=== PATIENT | female | born 2000 | race Caucasian/White ===

== ENCOUNTER 2022-03-28 19:02 | Emergency (ER) | payer BC ==
[2022-03-28 19:58] LABS: Urine Blood 3+ (Negative); Urine Glucose Negative (Negative); Urine Protein 1+ (Negative); Urine Specific Gravity >=1.030 (1.005-1.030); Urine pH 5.5 (5.0-7.0)
[2022-03-28 20:19] LABS: Absolute Lymphocytes (CBC) 2.1 K/uL (0.7-4.9); Lymphocytes % 23.1 % (15.3-44.8); MCV 81.2 fL (80-100); MPV 8.4 fL (7.6-11.3); RBC Red Blood Cell Count 4.93 M/uL (3.86-4.86)
[2022-03-28 20:19] LABS: Urine Specific Gravity/Preg >1.030 (1.005-1.030)
[2022-03-28] MEDS ORDERED: ONDANSETRON 4 MG/2 ML VIAL ONE (20:30)
[2022-03-28] MEDS ORDERED: NA CHLORIDE 0.9% 1,000 ML ONE (20:31)
[2022-03-28 20:41] LABS: Urine Bacteria None Seen /HPF (<20); Urine Mucus 1+ /HPF (None Seen); Urine RBC >50 /HPF (None Seen)
[2022-03-28] MEDS ORDERED: PROMETHAZINE INJ 25 MG/ML AMP ONE (20:52)
--- NOTE | 2022-03-28 21:11 | RAD REPORT ---
EXAM DESCRIPTION: US - 1St Trimest Single 1St Fetus - 03/28/2022 8:59 pm CLINICAL HISTORY: with vaginal bleeding COMPARISON: None. FINDINGS: The uterus measures 11 x 7 by centimeters. A normal appearing gestational sac is present within the endometrium. Within this is a pole with a crown-rump length 5.2 centimeters. Cardiac activity 183 beats per minute beats per minute Small subchorionic bleed Right and left ovary appear normal. The right and left adnexa are unremarkable No significant free fluid is seen. IMPRESSION: Single live intrauterine with an estimated gestational age 11 weeks 5 days ED D 10/12/2022 Small subchorionic bleed
--- NOTE | 2022-03-28 21:38 | EDPHYS ---
Physician Documentation [facility] Name: Gertrude Giron Age: 21 yrs Sex: Female : 2000 Arrival Date: 03/28/2022 Time: 19:04 Bed 16 Private MD: ED Physician Neena Herrera HPI: 03/28 19:53 This 21 yrs old Female presents to ER via Ambulatory with complaints of Vaginal sd2 Bleeding, + Preg <12wks. 19:53 21 yo F at 11 weeks gestation presents with CC of abdominal cramping x weeks and sd2 vaginal bleeding when using the restroom that just started today. Reports prior US at 6 weeks 6 days confirming IUP at help center and has been on vitamins. Also complains of significant nausea and vomiting during the past few weeks and is not on medication for this. Has her first appointment scheduled with her OBGYN in 3 days. . Historical: - Allergies: 19:22 PENICILLINS; pf1 - Immunization history:: Client reports having NOT received the Covid vaccine. Last tetanus immunization: < 10 years ago Flu vaccine is not up to date. - Social history:: Smoking status: Reported history of juuling and/or vaping. Patient/guardian denies using tobacco, Patient/guardian denies using alcohol, street drugs. ROS: 19:53 Constitutional: Negative for fever, chills, and weight loss, Eyes: Negative for injury, sd2 pain, redness, and discharge, Cardiovascular: Negative for chest pain, palpitations, and edema, Respiratory: Negative for shortness of breath, cough, wheezing. 19:53 MS/Extremity: Negative for injury and deformity, Skin: Negative for injury, rash, and discoloration. 19:53 Abdomen/GI: Positive for nausea and vomiting, abdominal cramps, Negative for diarrhea. 19:53 : Positive for vaginal bleeding, Negative for urinary symptoms. Exam: 19:53 Constitutional: This is a well developed, well nourished patient who is awake, alert, sd2 and in no acute distress. Head/Face: Normocephalic, atraumatic. Eyes: EOMI, normal conjunctiva bilaterally Chest/axilla: Normal chest wall appearance and motion. Nontender with no deformity. Cardiovascular: Regular rate and rhythm with a normal S1 and S2. No gallops, murmurs, or rubs. 2+ distal pulses. Respiratory: Lungs have equal breath sounds bilaterally, clear to auscultation and percussion. No rales, rhonchi or wheezes noted. No increased work of breathing, no retractions or nasal flaring. Abdomen/GI: Soft, non-tender, with normal bowel sounds. No guarding or rebound. No evidence of tenderness throughout. Skin: Warm, dry with normal turgor. Normal color with no rashes, no lesions, and no evidence of cellulitis. MS/ Extremity: Pulses equal, no cyanosis. Neurovascular intact. Full, normal range of motion. Ambulatory without difficulty. Psych: Awake, alert, with orientation to person, place and time. Behavior, mood, and affect are within normal limits. Vital Signs: 19:18 BP 115 / 76; Pulse 89; Resp 18; Temp 98.3; Pulse Ox 100% ; Weight 63.05 kg; Height 5 pf1 ft. 2 in. (157.48 cm); Pain 5/10; 21:00 BP 123 / 65; Pulse 81; Resp 16; Pulse Ox 100% on R/A; jb4 19:18 Body Mass Index 25.42 (63.05 kg, 157.48 cm) pf1 MDM: 19:48 Patient medically screened. sd2 19:53 Differential diagnosis: STD, ectopic , among others. Data reviewed: vital sd2 signs, nurses notes. 21:33 Data reviewed: lab test result(s), radiologic studies. I considered the following sd2 discharge prescriptions or medication management in the emergency department Medications were administered in the Emergency Department. See MAR. Historians other than the Patient: Parent: provides further HPI. Counseling: I had a detailed discussion with the patient and/or guardian regarding: the historical points, exam findings, and any diagnostic results supporting the discharge/admit diagnosis, lab results, radiology results, the need for outpatient follow up, to return to the emergency department if symptoms worsen or persist or if there are any questions or concerns that arise at home. ED course: Pt has had passage of a couple of large clots while in ER with resolved bleeding after each episode. She has very stable VS with no signs of significant anemia on workup. US shows subchorionic bleed which is likely source of bleeding. hCG appropriate for dates and fetus with normal heart tones at this time. Advised continuing with follow up plan with OBGYN this upcoming week and continuing to monitor bleeding at this time. Also advised Unisom and B6 for nausea but will also give Rx for phenergan at home. Verbalizes understanding of discharge plan and strict return precautions at this time. . 03/28 19:30 Order name: CBC with Diff; Complete Time: 20:28 sd2 03/28 19:30 Order name: Abo/rh Typing; Complete Time: 20:48 sd2 03/28 19:30 Order name: HCG-Quantitative; Complete Time: 21:10 sd2 03/28 19:30 Order name: Urine Microscopic Only; Complete Time: 20:48 sd2 03/28 19:58 Order name: Urine Dipstick-Ancillary; Complete Time: 20:28 EDMS 03/28 20:02 Order name: Urine --Ancillary (enter results); Complete Time: 20:28 ds4 03/28 19:30 Order name: Urine Dipstick-Ancillary (obtain specimen); Complete Time: 19:58 sd2 03/28 19:30 Order name: Urine Test (obtain specimen); Complete Time: 20:02 sd2 03/28 19:30 Order name: 1st Trimest Single 1st Fetus; Complete Time: 21:22 sd2 Administered Medications: 20:34 Drug: NS 0.9% 1000 ml Route: IV; Rate: 1 bolus; Site: left antecubital; jb4 20:48 Not Given (Physician Discretion): Zofran (Ondansetron) 4 mg IVP once; over 2 minutes sd2 20:51 Drug: Phenergan (promethazine) 12.5 mg {Note: administered in bolus per providers jb4 instructions..} Route: IVP; Site: left antecubital; Disposition Summary: 03/28/22 21:37 Discharge Ordered Location: Home sd2 Problem: new sd2 Symptoms: have improved sd2 Condition: Stable sd2 Diagnosis - First trimester vaginal bleeding sd2 - Subchorionic hemorrhage sd2 Followup: sd2 - With: Private Physician - When: 2 - 3 days - Reason: Recheck today's complaints, Continuance of care, Re-evaluation by your physician Discharge Instructions: - Discharge Summary Sheet sd2 - Vaginal Bleeding During , First Trimester sd2 - Subchorionic Hematoma sd2 Forms: - Medication Reconciliation Form sd2 - Work release form eb - Thank You Letter sd2 - Antibiotic Education sd2 - Prescription Opioid Use sd2 Prescriptions: - promethazine 25 mg Oral Tablet - take 1 tablet by ORAL route every 6 hours As needed; 15 tablet; Refills: 0, sd2 Product Selection Permitted Signatures: Dispatcher [employer] Florian Maier RN RN jb4 Neena Herrera MD MD sd2 Montserrat harris RN RN pf1
--- NOTE | 2022-03-28 21:38 | ER ---
Nurse's Notes [facility] Name: Gertrude Giron Age: 21 yrs Sex: Female : 2000 Arrival Date: 03/28/2022 Time: 19:04 Bed 16 Private MD: Diagnosis: First trimester vaginal bleeding;Subchorionic hemorrhage Presentation: 03/28 19:18 Chief complaint: Patient states: Patient C/O nausea and vomiting x 2 weeks, lower pf1 abdominal pain of 5 cramping,onset 1 week with vaginal bleeding with clots,onset today. Patient stated is currently 11 weeks . IUP confirmed by [facility] on February 24, 2022. . Coronavirus screen: Vaccine status: Patient reports being unvaccinated. Client denies travel out of the [place] in the last 14 days. At this time, the client does not indicate any symptoms associated with coronavirus-19. Ebola Screen: Patient negative for fever greater than or equal to 101.5 degrees Fahrenheit, and additional compatible Ebola Virus Disease symptoms. Initial Sepsis Screen: Does the patient meet any 2 criteria? No. Patient's initial sepsis screen is negative. Does the patient have a suspected source of infection? No. Patient's initial sepsis screen is negative. Risk Assessment: Do you want to hurt yourself or someone else? Patient reports no desire to harm self or others. 19:18 Method Of Arrival: Ambulatory pf1 19:18 Acuity: ZOEY 3 pf1 Historical: - Allergies: 19:22 PENICILLINS; pf1 - Immunization history:: Client reports having NOT received the Covid vaccine. Last tetanus immunization: < 10 years ago Flu vaccine is not up to date. - Social history:: Smoking status: Reported history of juuling and/or vaping. Patient/guardian denies using tobacco, Patient/guardian denies using alcohol, street drugs. Screenin:59 [facility] ED Fall Risk Assessment (Adult) History of falling in the last 3 months, jb4 including since admission No falls in past 3 months (0 pts) Confusion or Disorientation No (0 pts) Score/Fall Risk Level 0 - 2 = Low Risk Oriented to surroundings, Maintained a safe environment. Abuse screen: Denies threats or abuse. Nutritional screening: No deficits noted. Tuberculosis screening: No symptoms or risk factors identified. Assessment: 20:00 General: Appears in no apparent distress. comfortable, Behavior is calm, cooperative, jb4 appropriate for age. Pain: Complains of pain in abdomen Pain does not radiate. Pain currently is 5 out of 10 on a pain scale. Neuro: Level of Consciousness is awake, alert, obeys commands, Oriented to person, place, time, situation. Cardiovascular: Patient's skin is warm and dry. Respiratory: Airway is patent Respiratory effort is even, unlabored, Respiratory pattern is regular, symmetrical. GI: No signs and/or symptoms were reported involving the gastrointestinal system. : Reports vaginal bleeding that is with clots, heavy flow. EENT: No signs and/or symptoms were reported regarding the EENT system. Derm: Skin is intact, Skin is pink, warm \T\ dry. Musculoskeletal: Circulation, motion, and sensation intact. Range of motion: intact in all extremities. 21:00 Reassessment: Patient appears in no apparent distress at this time. Patient and/or jb4 family updated on plan of care and expected duration. Pain level reassessed. Patient is alert, oriented x 3, equal unlabored respirations, skin warm/dry/pink. 21:59 Reassessment: Patient appears in no apparent distress at this time. Patient and/or jb4 family updated on plan of care and expected duration. Pain level reassessed. Patient is alert, oriented x 3, equal unlabored respirations, skin warm/dry/pink. Vital Signs: 19:18 BP 115 / 76; Pulse 89; Resp 18; Temp 98.3; Pulse Ox 100% ; Weight 63.05 kg; Height 5 pf1 ft. 2 in. (157.48 cm); Pain 5/10; 21:00 BP 123 / 65; Pulse 81; Resp 16; Pulse Ox 100% on R/A; jb4 19:18 Body Mass Index 25.42 (63.05 kg, 157.48 cm) pf1 ED Course: 19:04 Patient arrived in ED. am2 19:22 Triage completed. pf1 19:30 Neena Herrera MD is Attending Physician. sd2 19:58 Urine Microscopic Only Sent. pf1 20:20 Florian Torres, RN is Primary Nurse. jb4 21:00 1st Trimest Single 1st Fetus In Process Unspecified. EDMS 21:59 No provider procedures requiring assistance completed. IV discontinued, intact, jb4 bleeding controlled, No redness/swelling at site. Pressure dressing applied. 21:59 Patient has correct armband on for positive identification. Bed in low position. Call jb4 light in reach. Side rails up X 1. Administered Medications: 20:34 Drug: NS 0.9% 1000 ml Route: IV; Rate: 1 bolus; Site: left antecubital; jb4 20:48 Not Given (Physician Discretion): Zofran (Ondansetron) 4 mg IVP once; over 2 minutes sd2 20:51 Drug: Phenergan (promethazine) 12.5 mg {Note: administered in bolus per providers jb4 instructions..} Route: IVP; Site: left antecubital; Medication: 21:59 VIS not applicable for this client. jb4 Outcome: 21:37 Discharge ordered by . sd2 21:59 Discharged to home ambulatory. jb4 21:59 Condition: stable 21:59 Discharge instructions given to patient, Instructed on discharge instructions, follow up and referral plans. medication usage, Demonstrated understanding of instructions, follow-up care, medications, Prescriptions given X 1. 22:02 Patient left the ED. jb4 Signatures: Dispatcher [employer] EDMS Florian Torres RN RN jb4 Magaly Menchaca am2 Neena Herrera MD MD sd2 Montserrat harris RN RN pf1 Corrections: (The following items were deleted from the chart) 19:33 19:18 Chief complaint: Patient states: Patient C/O lower abdominal pain of 5 pf1 cramping,onset 1 week with vaginal bleeding with clots,onset today. Patient stated is currently 11 weeks . IUP confirmed by [facility] on February 24, 2022. . pf1
[2022-03-28 22:09] VITALS: TEMP 98.3; O2SAT 100
[2022-03-28 22:10] VITALS: BP 123/65
== END 2022-03-28 22:02 | disposition home or self-care (01) ==
LOC: ER 19:02
DX: O20.9 Hemorrhage in early pregnancy, unspecified (principal); Z3A.11 11 weeks gestation of pregnancy; Z88.0 Allergy status to penicillin
CPT/HCPCS: 85025; 36415; 86900; 81025; 86901; 84702; 76801; 96374; 99284; J2550; J7030; 81003; 81015; J2405

== ENCOUNTER 2022-04-01 00:12 | Emergency (ER) | payer BC ==
--- OUTSIDE RECORDS SUMMARY | 2022-04-01 00:14 | XMS REPORT | Continuity of Care Document ---
:2000 Author Organization [facility] t Address [address] [place] [address] Care Team Providers Name Role Phone Pcp, Patient Does Not Have A Primary Care Physician [id number] JOE MARTÍNEZ Attending Clinician Unavailable Joe Martínez MD Attending Clinician Payers Payer Name Policy Type Policy Number Effective Date Expiration Date [id number] 2022 00:00:00 OUT OF STATE Problems This patient has no known problems. Allergies, Adverse Reactions, Alerts Allergy Allergy Status Severity Reaction(s) Onset Inactive Treating Comm ents Source Name Type Date Date Clinician NO KNOWN Drug Active Univers ALLERGIE Class ity of S [facility] Social History Social Habit Start Date Stop Date Quantity Comments Source ASSERTION 2022-01-21 [facility] 00:00:00 [facility] Exposure to 2022-03-21 2022-03-31 Not sure [facility] SARS-CoV-2 00:00:00 13:48:00 [facility] (event) [place] Tobacco use and 2022-03-31 2022-03-31 Smokeless tobacco Un iversity of exposure 00:00:00 00:00:00 non-user [facility] Alcohol intake 2022-03-31 2022-03-31 Ex-drinker [facility] 00:00:00 00:00:00 (finding) [facility] Sex Assigned At [birth year] Universit y of 00:00:00 00:00:00 [facility] Smoking Status Start Date Stop Date Source Never smoked tobacco [facility] Medications Ordered Filled Start Stop Current Ordering Indication Dosage Frequency Signature Comments Components Source Medication Medication Date Date Medication? Clinician (SIG) Name Name promethazin Yes [id number] Take by Univers e HCl 2-07 mouth. ity of (PHENERGAN 14:55: [place] ORAL) [facility] promethazin Yes [id number] Take by Univers e HCl 2-07 mouth. ity of (PHENERGAN 14:55: [place] ORAL) [facility] ondansetron Yes [id number] 4mg Take 1 Univers 4 mg 2-07 tablet by ity of disintegrat 00:00: mouth [place] ing tablet 00 every 8 Medica l (eight) Branch hours as needed for Nausea and Vomiting (N/V) or N/V unresponsi ve to Promethazi ne. Vital Signs Vital Name Observation Time Observation Value Comments Source Systolic blood 2022-03-31 20:47:00 106 [facility] Diastolic blood 2022-03-31 20:47:00 69 [facility]Hg[facility] 2022-03-31 20:47:00 98 /min [facility] Body temperature 2022-03-31 20:47:00 36.67 [place] [facility] Respiratory rate 2022-03-31 20:47:00 16 /min [facility] Body height 2022-03-31 20:47:[address] [facility] Body weight 2022-03-31 20:47:[address] [facility] BMI 2022-03-31 20:47:00 25.74 kg/m2 [facility] Oxygen saturation in 2022-03-31 20:47:00 97 /min [facility] blood by [facility] Pulse oximetry [place] Procedures Procedure Date / Time Performed Performing Clinician Alysa CAMARGO OB TRANSVAGINAL 2022-03-31 21:39:00 Adum, Joe Cunha [facility] POCT TEST 2022-03-31 00:00:00 Joe Martínezi ty [facility] Encounters Start End Encounter Admission Attending Care Care Encounter Source Date/Time Date/Time Type Type Clinicians Facility Department ID 2022-04-28 2022-04-28 [id number] Univers 11:15:00 11:15:00 JOE jose a [facility] 2022-04-07 2022-04-07 Outpatient R [facility] [id number] Univers 07:30:00 07:30:00 ity [facility] 2022-03-31 2022-03-31 Outpatient R TANYA [facility] [id number] Univers 14:30:00 15:50:57 [facility] 2022-03-31 2022-03-31 [facility] [id number] Univers 14:30:00 15:50:57 Joe EGAN [id number] ity of Visit [facility] [id number] [employer] [id number] [address] 2022-03-31 2022-03-31 Letter Tanya [facility] [id number] Univers 00:00:00 00:00:00 (Out) Joe EGAN [id number] i ty of [facility] [id number] [employer] [id number] [address] Results Test Description Test Time Test Comments Results Result Comments Source POCT TEST 2022-03-31 21:00:00 Test Item Value Reference Range Interpretation Comme nts POCT PREG (test code = 1605) Positive On board controls acceptable with C Line (test code = 3574) Yes POCT PREG LOT # (test code = 3575) POCT PREG TEST DATE (test code = 3576) [facility]
[2022-04-01] MEDS ORDERED: HYDROMORPHONE HCL 1 MG/ML INJ ONE (00:45)
[2022-04-01] MEDS ORDERED: NA CHLORIDE 0.9% 1,000 ML ONE (00:46)
[2022-04-01] MEDS ORDERED: METRONIDAZOLE 500mg IVPB 0 MG/0 ML BAG IV ONE (00:46)
[2022-04-01] MEDS ORDERED: METHYLERGONOVINE 0.2MG/ML AMP IM ONE (01:25)
[2022-04-01 01:35] LABS: Absolute Lymphocytes (CBC) 0.8 K/uL (0.7-4.9); Hematocrit 34.5 % (36.0-45.0); Lymphocytes % 5.6 % (15.3-44.8); MPV 8.5 fL (7.6-11.3); RBC Red Blood Cell Count 4.32 M/uL (3.86-4.86)
[2022-04-01 01:59] LABS: Potassium 3.4 mmol/L (3.5-5.1)
[2022-04-01] MEDS ORDERED: ONDANSETRON 4 MG/2 ML VIAL ONE (02:00)
--- NOTE | 2022-04-01 02:17 | ER ---
Nurse's Notes [facility] Name: Gertrude Giron Age: 21 yrs Sex: Female : 2000 Arrival Date: 04/01/2022 Time: 00:14 Bed 19 Private MD: Diagnosis: Complete or unspecified spontaneous without complication Presentation: 04/01 00:26 Chief complaint: Patient states: C/o low abdominal pain and vaginal bleeding, Pt states ll3 "I believe I had a miscarriage", states pain is 3/10. Coronavirus screen: Vaccine status: Patient reports being unvaccinated. At this time, the client does not indicate any symptoms associated with coronavirus-19. Ebola Screen: No symptoms or risks identified at this time. Initial Sepsis Screen: Does the patient meet any 2 criteria? No. Patient's initial sepsis screen is negative. Does the patient have a suspected source of infection? No. Patient's initial sepsis screen is negative. Risk Assessment: Do you want to hurt yourself or someone else? Patient reports no desire to harm self or others. Onset of symptoms was March 28, 2022. 00:26 Method Of Arrival: Ambulatory ll3 00:26 Acuity: ZOEY 3 ll3 Triage Assessment: 00:28 General: Appears uncomfortable, Behavior is calm, cooperative, crying. Pain: Complains ll3 of pain in right lower quadrant and left lower quadrant Pain currently is 3 out of 10 on a pain scale. Quality of pain is described as crampy. : Reports vaginal bleeding that is with clots, moderate flow, since Wednesday Brought in large blood clot/tissue, states "I think I had a miscarriage". Derm: Skin is pink, warm \\T\\ dry. [employer] INSURANCE: 00:28 LMP 01/16/2022 ll3 00:30 1, Full Term 0, Premature 0, 0, Living 0 jaime Historical: - Allergies: 00:28 PENICILLINS; ll3 - Home Meds: 00:28 None [Active]; ll3 - PMHx: 00:28 None; ll3 - PSHx: 00:28 Cholecystectomy; ll3 - Immunization history:: Client reports having NOT received the Covid vaccine. - Social history:: Smoking status: Patient denies any tobacco usage or history of. Screenin:43 [facility] ED Fall Risk Assessment (Adult) History of falling in the last 3 months, kd3 including since admission No falls in past 3 months (0 pts) Confusion or Disorientation No (0 pts) Intoxicated or Sedated No (0 pts) Impaired Gait No (0 pts) Mobility Assist Device Used No (0 pt) Altered Elimination No (0 pt) Score/Fall Risk Level 0 - 2 = Low Risk Oriented to surroundings, Maintained a safe environment. Abuse screen: Denies threats or abuse. Denies injuries from another. Nutritional screening: No deficits noted. Tuberculosis screening: No symptoms or risk factors identified. Assessment: 00:36 General: pt reports being about 12 weeks and 3 days . kd3 00:37 Obstetrical Assessment: General assessment: awake and alert, anxious, Patient reports kd3 abdominal cramping. 00:43 General: Appears Behavior is anxious, crying. Neuro: Level of Consciousness is awake, kd3 alert, obeys commands, Oriented to person, place, time, situation. Cardiovascular: Patient's skin is warm and dry. Respiratory: Airway is patent Trachea midline Respiratory effort is even, unlabored, Respiratory pattern is regular, symmetrical. 01:54 General: Pt family would like tissue returned to them in order to have a kd3 ceremony. This RN spoke with company laborerBeau. patient care technician suggested the family call when the pathologist arrived in the morning in order to have further instruction regarding receiving the specimen back. This RN gave the lab phone number to the patient's parents and passed the message to call the lab at 0800 when the pathologist is expected to arrive. . 02:00 GI: Reports nausea. kd3 Vital Signs: 00:26 BP 126 / 79; Pulse 107; Resp 16; Temp 98.8(O); Pulse Ox 98% on R/A; Weight 59.42 kg ll3 (R); Height 5 ft. 2 in. (157.48 cm) (R); Pain 3/10; 01:52 BP 125 / 68; Pulse 76; Resp 19; Pulse Ox 100% on R/A; kd3 00:26 Body Mass Index 23.96 (59.42 kg, 157.48 cm) ll3 ED Course: 00:14 Patient arrived in ED. ja2 00:22 Jacobo Alonzo MD is Attending Physician. jaime 00:28 Triage completed. ll3 00:28 Arm band placed on Patient placed in an exam room, on a stretcher, on pulse oximetry. ll3 00:43 Daniela Perry, RN is Primary Nurse. kd3 00:50 walked out specimen to outside lab handed specimen to Beau. Patient and family mw2 members would like to have the specimen returned to them in order for them to have proper bereavement. Informed Beau of the families wishes he stated " have the family call at 8am to speak to the Pathologist.". 01:08 US Transvaginal Ob In Process Unspecified. EDMS 01:18 Quantitative Hcg Sent. kd3 01:18 CBC with Diff Sent. kd3 01:18 Basic Metabolic Panel Sent. kd3 01:18 Abo/rh Typing Sent. kd3 01:22 Inserted saline lock: 22 gauge in left hand, using aseptic technique. ll3 01:30 Quantitative Hcg Sent. kd3 01:30 CBC with Diff Sent. kd3 01:30 Basic Metabolic Panel Sent. kd3 01:30 Abo/rh Typing Sent. kd3 02:17 Harish Castillo MD is Referral Physician. jaime 03:20 pelvic exam. IV discontinued, intact, bleeding controlled, No redness/swelling at site. kd3 Pressure dressing applied. 03:22 Patient has correct armband on for positive identification. Placed in gown. Bed in low kd3 position. Administered Medications: 01:30 Drug: NS 0.9% 1000 ml Route: IV; Rate: 1 bolus; Site: left hand; kd3 01:30 Drug: METHERgine 0.2 mg Route: IM; Site: right deltoid; kd3 03:19 Follow up: Response: No adverse reaction kd3 02:00 Drug: Zofran (Ondansetron) 4 mg Route: IVP; Site: left hand; kd3 03:19 Follow up: Response: No adverse reaction; Nausea is decreased kd3 03:07 Drug: Rho D Immune Globulin 300 mcg Route: IM; Site: left deltoid; kd3 03:19 Follow up: Response: No adverse reaction kd3 Medication: 03:22 VIS not applicable for this client. kd3 Outcome: 02:17 Discharge ordered by . jaime 03:20 Patient left the ED. kd3 03:21 Discharged to home ambulatory. kd3 03:21 Condition: stable 03:21 Discharge instructions given to patient, family, Instructed on discharge instructions, follow up and referral plans. Demonstrated understanding of instructions, follow-up care. Signatures: Dispatcher [employer] Jacobo Lama MD MD cha Gatti, MyKena 2 Kelin Benavidez Lynsea, RN RN ll3 Daniela Perry RN RN kd3
--- NOTE | 2022-04-01 02:17 | EDPHYS ---
Physician Documentation [facility] Name: Gertrude Giron Age: 21 yrs Sex: Female : 2000 Arrival Date: 04/01/2022 Time: 00:14 Bed 19 Private MD: ED Physician Jacobo Alonzo HPI: 04/01 00:30 This 21 yrs old Female presents to ER via Ambulatory with complaints of jaime Vaginal Bleeding, + Preg <12wks, Abdominal Cramping. 00:30 The patient presents to the emergency department with vaginal bleeding, that is jaime moderate, that is heavy. The estimated gestational age is 13 weeks. course: care: private OB physician, Leakage of Fluid: none appreciated, Ultrasound: Risk/complications: no obvious risks or complications are appreciated. Previous pregnancies: the patient has never been . Associated signs and symptoms: The patient has no apparent associated signs or symptoms. The patient has not experienced similar symptoms in the past. 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 - Social history:: Smoking status: Patient denies any tobacco usage or history of. ROS: 00:31 Constitutional: Negative for fever, chills, and weight loss, Eyes: Negative for injury, jaime pain, redness, and discharge, ENT: Negative for injury, pain, and discharge, Neck: Negative for injury, pain, and swelling, Cardiovascular: Negative for chest pain, palpitations, and edema, Respiratory: Negative for shortness of breath, cough, wheezing, and pleuritic chest pain, Back: Negative for injury and pain, MS/Extremity: Negative for injury and deformity, Skin: Negative for injury, rash, and discoloration, Neuro: Negative for headache, weakness, numbness, tingling, and seizure. 00:31 Abdomen/GI: Positive for abdominal pain, abdominal cramps. 00:31 : Positive for vaginal bleeding. Exam: 00:31 Constitutional: This is a well developed, well nourished patient who is awake, alert, jaime and in no acute distress. Head/Face: Normocephalic, atraumatic. Eyes: Pupils equal round and reactive to light, extra-ocular motions intact. Lids and lashes normal. Conjunctiva and sclera are non-icteric and not injected. Cornea within normal limits. Periorbital areas with no swelling, redness, or edema. ENT: Nares patent. No nasal discharge, no septal abnormalities noted. Tympanic membranes are normal and external auditory canals are clear. Oropharynx with no redness, swelling, or masses, exudates, or evidence of obstruction, uvula midline. Mucous membranes moist. Neck: Trachea midline, no thyromegaly or masses palpated, and no cervical lymphadenopathy. Supple, full range of motion without nuchal rigidity, or vertebral point tenderness. No Meningismus. Chest/axilla: Normal chest wall appearance and motion. Nontender with no deformity. No lesions are appreciated. Cardiovascular: Regular rate and rhythm with a normal S1 and S2. No gallops, murmurs, or rubs. Normal PMI, no JVD. No pulse deficits. Respiratory: Lungs have equal breath sounds bilaterally, clear to auscultation and percussion. No rales, rhonchi or wheezes noted. No increased work of breathing, no retractions or nasal flaring. Back: No spinal tenderness. No costovertebral tenderness. Full range of motion. Skin: Warm, dry with normal turgor. Normal color with no rashes, no lesions, and no evidence of cellulitis. MS/ Extremity: Pulses equal, no cyanosis. Neurovascular intact. Full, normal range of motion. Neuro: Awake and alert, GCS 15, oriented to person, place, time, and situation. Cranial nerves II-XII grossly intact. Motor strength 5/5 in all extremities. Sensory grossly intact. Cerebellar exam normal. Normal gait. Psych: Awake, alert, with orientation to person, place and time. Behavior, mood, and affect are within normal limits. 00:31 Abdomen/GI: Inspection: abdomen appears normal, Bowel sounds: normal, Palpation: soft, Liver: no appreciated palpable abnormalities, Hernia: not appreciated. Vital Signs: 00:26 BP 126 / 79; Pulse 107; Resp 16; Temp 98.8(O); Pulse Ox 98% on R/A; Weight 59.42 kg ll3 (R); Height 5 ft. 2 in. (157.48 cm) (R); Pain 3/10; 01:52 BP 125 / 68; Pulse 76; Resp 19; Pulse Ox 100% on R/A; kd3 00:26 Body Mass Index 23.96 (59.42 kg, 157.48 cm) ll3 MDM: 00:22 Patient medically screened. [facility] 00:33 Differential diagnosis: complete Ab, retained Ab. Data reviewed: vital signs, nurses [facility] notes, lab test result(s), radiologic studies, ultrasound. Consideration of Admission/Observation Patient was admitted/placed on observation. Escalation of care including admission/observation considered. Care significantly affected by the following chronic conditions: none. 04/01 00:24 Order name: Abo/rh Typing [facility] 04/01 00:24 Order name: Basic Metabolic Panel; Complete Time: 02:15 [facility] 04/01 00:24 Order name: CBC with Diff; Complete Time: 01:49 [facility] 04/01 00:24 Order name: Quantitative Hcg; Complete Time: 02:15 [facility] 04/01 02:21 Order name: Antibody Screen [facility] 04/01 02:21 Order name: Rh Typing [facility] 04/01 02:21 Order name: Fetalscreen [facility] 04/01 02:21 Order name: Cord Rh type [facility] 04/01 02:21 Order name: Rhogam [facility] 04/01 00:24 Order name: US Transvaginal Ob [facility] 04/01 00:24 Order name: IV Saline Lock; Complete Time: 01:30 [facility] 04/01 00:24 Order name: Labs collected and sent; Complete Time: 01:18 [facility] 04/01 00:24 Order name: NPO; Complete Time: 01:18 [facility] 04/01 00:24 Order name: Urine Dipstick-Ancillary (obtain specimen); Complete Time: 01:52 [facility] 04/01 00:24 Order name: Misc. Order: poc to lab; Complete Time: 00:47 [facility] 04/01 00:24 Order name: Pelvic Exam Setup; Complete Time: 01:18 [facility] 04/01 02:17 Order name: PO challenge: juice; Complete Time: 03:14 [facility] Administered Medications: 01:30 Drug: NS 0.9% 1000 ml Route: IV; Rate: 1 bolus; Site: left hand; kd3 01:30 Drug: METHERgine 0.2 mg Route: IM; Site: right deltoid; kd3 03:19 Follow up: Response: No adverse reaction kd3 02:00 Drug: Zofran (Ondansetron) 4 mg Route: IVP; Site: left hand; kd3 03:19 Follow up: Response: No adverse reaction; Nausea is decreased kd3 03:07 Drug: Rho D Immune Globulin 300 mcg Route: IM; Site: left deltoid; kd3 03:19 Follow up: Response: No adverse reaction kd3 Disposition Summary: 04/01/22 02:17 Discharge Ordered Location: Home jaime Problem: new jaime Symptoms: have improved jaime Condition: Stable jaime Diagnosis - Complete or unspecified spontaneous without complication jaime Followup: jaime - With: Private Physician - When: 2 - 3 days - Reason: Recheck today's complaints, Continuance of care, Re-evaluation by your physician Followup: jaime - With: - When: 2 - 3 days - Reason: Recheck today's complaints, Re-evaluation by your physician Discharge Instructions: - Miscarriage jaime - Miscarriage, [id number] jaime - Discharge Summary Sheet sb4 Forms: - Work release form jaime - Medication Reconciliation Form [facility] - Thank You Letter [facility] - Antibiotic Education [facility] - Prescription Opioid Use [facility] Prescriptions: - Methergine 0.2 mg Oral tablet - take 1 tablet by ORAL route every 6 hours for 2 days; 5 tablet; Refills: 0, sb4 Product Selection Permitted - Zofran 4 mg Oral Tablet - take 1 tablet by ORAL route every 12 hours As needed; 20 tablet; Refills: 0, [facility] Product Selection Permitted Signatures: Dispatcher [employer] Jacobo Lama MD MD cha Loubet, Lynsea RN RN ll3 Daniela Perry RN RN kd3 Corrections: (The following items were deleted from the chart) 02: 02:16 RHOGAM+[id number].BRZ ordered. EDMS EDMS 02: 02:18 Rh Typing ordered. EDMS EDMS 02: 02:18 Antibody Screen ordered. EDMS EDMS 02: 02:18 Fetalscreen ordered. EDMS EDMS 02: 02:18 Cord Rh type ordered. EDMS EDMS
[2022-04-01 03:30] VITALS: TEMP 98.8
[2022-04-01 03:36] VITALS: BP 125/68; O2SAT 100
--- NOTE | 2022-04-01 10:42 | RAD REPORT ---
EXAM DESCRIPTION: US - Transvaginal OB - 04/01/2022 1:01 am CLINICAL HISTORY: ABD CRAMPING, TECHNIQUE: Real-time transabdominal and transvaginal obstetrical ultrasound of the maternal pelvis a nd a first trimester with image documentation. Transvaginal imaging was used for better e valuation of the fetus and adnexa. COMPARISON: US 1st Trimester dated 03/28/2022 FINDINGS: Gestation: Previously demonstrated intrauterine gestational sac is no longer present. Heterogeneous thickening of the endometrium at the lower uterine segment and the endocervix. No dem onstrable vascularity on color Doppler interrogation. Uterus/cervix: The uterus is anteverted and measures 8.7 x 5.5 x 5.7 cm. No myometrial mass. Ovaries: Neither ovary is visualized. No mass. Free fluid: No free fluid. IMPRESSION: Findings compatible with interval spontaneous . Thickened endometrium and endo cervix which may represent hemorrhagic products. No definitive flow on color Doppler interrogation. However, the absence of blood flow does not exclude the diagnosis of retained products of concepti on. Careful follow-up including correlation with beta-hCG levels is recommended. Electronically signed by: Nico Yousif MD 04/01/2022 1:26 AM JAVA DEVELOPER WITH SECURITY CLEARANCE Due to temporary technical issues with the PACS/Fluency reporting system, reports are being signed by the in house radiologists without review as a courtesy to insure prompt reporting. The interpreting radiologist is fully responsible for the content of the report.
== END 2022-04-01 03:20 | disposition home or self-care (01) ==
LOC: ER 00:12
DX: O03.9 Complete or unspecified spontaneous abortion without complication (principal); Z88.0 Allergy status to penicillin
CPT/HCPCS: 85025; 80048; 36415; 86900; 86850; 86901 ×2; 88305; 84702; 76817; J2790; J2210; J7030; J2405; J1170

== ENCOUNTER 2022-04-03 21:07 | Emergency (ER) | payer BC ==
--- OUTSIDE RECORDS SUMMARY | 2022-04-03 21:11 | XMS REPORT | Continuity of Care Document ---
:2000 Author Organization [facility] t Address [address] [place] [address] Care Team Providers Name Role Phone Pcp, Patient Does Not Have A Primary Care Physician [id number] JOE MARTÍNEZ Attending Clinician Unavailable Joe Martínez MD Attending Clinician Doctor Unassigned, [place] Attending Clinician Unavailable Payers Payer Name Policy Type Policy Number Effective Date Expiration Date S [facility] - [id number] 2022 00:00:00 OUT OF STATE Problems This patient has no known problems. Allergies, Adverse Reactions, Alerts Allergy Allergy Status Severity Reaction(s) Onset Inactive Treating Comm ents Source Name Type Date Date Clinician NO KNOWN Drug Active Univers ALLERGIE Class ity of S [facility] Social History Social Habit Start Date Stop Date Quantity Comments Source ASSERTION 2022-01-21 [facility] 00:00:00 [facility] Exposure to 2022-03-21 2022-03-31 Not sure [facility] SARS-CoV-2 00:00:00 13:48:00 [facility] (event) [place] Tobacco use and 2022-03-31 2022-03-31 Smokeless tobacco Un iversity of exposure 00:00:00 00:00:00 non-user [facility] Alcohol intake 2022-03-31 2022-03-31 Ex-drinker [facility] 00:00:00 00:00:00 (finding) [facility] Sex Assigned At [birth year] [facility] y of 00:00:00 00:00:00 [facility] Smoking Status Start Date Stop Date Source Tobacco smoking [facility] Never smoked tobacco [facility] Medications Ordered Filled Start Stop Current Ordering Indication Dosage Frequency Signature Comments Components Source Medication Medication Date Date Medication? Clinician (SIG) Name Name promethazin Yes [id number] Take by Univers e HCl 2-07 mouth. ity of (PHENERGAN 14:55: [place] ORAL) [facility] promethazin Yes [id number] Take by Univers e HCl 2-07 mouth. ity of (PHENERGAN 14:55: [place] ORAL) [facility] ondansetron Yes [id number] 4mg Take 1 Univers 4 mg 2-07 tablet by ity of disintegrat 00:00: mouth [place] ing tablet 00 every 8 Medica l (eight) Branch hours as needed for Nausea and Vomiting (N/V) or N/V unresponsi ve to Promethazi ne. Vital Signs Vital Name Observation Time Observation Value Comments Source Systolic blood 2022-03-31 20:47:00 106 [facility] Diastolic blood 2022-03-31 20:47:00 69 mm[facility]Hg[facility] Heart rate 2022-03-31 20:47:00 98 /min [facility] Body temperature 2022-03-31 20:47:00 36.67 [facility] [facility] Respiratory rate 2022-03-31 20:47:00 16 /min [facility] Body height 2022-03-31 20:47:00 152.4 cm [facility] Body weight 2022-03-31 20:47:00 59.784 kg [facility] BMI 2022-03-31 20:47:00 25.74 kg/m2 [facility] Oxygen saturation in 2022-03-31 20:47:00 97 /min [facility] Arterial blood by [facility] Pulse oximetry Branch Procedures Procedure Date / Time Performed Performing Clinician Alysa CAMARGO OB TRANSVAGINAL 2022-03-31 21:39:00 Joe Martínez [facility] POCT TEST 2022-03-31 00:00:00 AdJoe knight Universi ty of [facility] DISCHARGE SUMMARY 2022-02-24 06:01:00 Doctor Unatorie, Emely Univ ersity of [facility] Encounters Start End Encounter Admission Attending Care Care Encounter Source Date/Time Date/Time Type Type Clinicians Facility Department ID 2022-04-28 2022-04-28 [id number] Univers 11:15:00 11:15:00 JOE itjose a [facility] 2022-04-07 2022-04-07 Outpatient R [facility] [id number] Univers 07:30:00 07:30:00 ity of [facility] 2022-03-31 2022-03-31 [facility] [id number] Univers 14:30:00 15:50:57 [facility] 2022-03-31 2022-03-31 [facility] [id number] Univers 14:30:00 15:50:57 Joe EGAN [id number] ity of [place] [id number] [id number] [address] 2022-03-31 2022-03-31 [facility] [id number] Univers 00:00:00 00:00:00 (Out) Joe EGAN [id number] i [id number] [id number] [address] 2022-02-24 2022-02-24 Orders Doctor CORIE [id number] Univers 00:00:00 00:00:00 Only UnassignedKRISTIAN [id number] ity of [place] [facility] [id number] [place] as [id number] [address] Results Test Description Test Time Test Comments Results Result Comments Source POCT TEST 2022-03-31 21:00:00 Test Item Value Reference Range Interpretation Comme nts POCT PREG (test code = 1605) Positive On board controls acceptable with C Line (test code = 3574) Yes POCT PREG LOT # (test code = 3575) POCT PREG TEST DATE (test code = 3576) [facility]
[2022-04-03] MEDS ORDERED: NA CHLORIDE 0.9% 1,000 ML ONE (23:09)
[2022-04-03 23:46] LABS: Absolute Lymphocytes (CBC) 2.3 K/uL (0.7-4.9); Hematocrit 33.9 % (36.0-45.0); Lymphocytes % 20.4 % (15.3-44.8); MCV 81.7 fL (80-100); MPV 8.5 fL (7.6-11.3); RBC Red Blood Cell Count 4.15 M/uL (3.86-4.86)
[2022-04-04] MEDS ORDERED: FENTANYL CITR 100 MCG/2 ML ONE (00:08)
[2022-04-04 00:11] LABS: Potassium 3.4 mmol/L (3.5-5.1)
[2022-04-04 00:37] LABS: Urine Blood 2+ (Negative); Urine Glucose Negative (Negative); Urine Protein Trace (Negative); Urine Specific Gravity >=1.030 (1.005-1.030); Urine pH 6.5 (5.0-7.0)
[2022-04-04 01:19] LABS: Urine Bacteria <20 /HPF (<20); Urine Mucus Slight /HPF (None Seen)
--- NOTE | 2022-04-04 01:30 | EDPHYS ---
Physician Documentation [facility] Name: Gertrude Giron Age: 21 yrs Sex: Female : 2000 Arrival Date: 04/03/2022 Time: 21:10 Bed 2 Private MD: ED Physician Vikas Uribe HPI: 04/03 21:40 This 21 yrs old Female presents to ER via Ambulatory with complaints of Abdominal cp Cramping, Vaginal Bleeding. 21:40 The patient presents with vaginal bleeding that is heavy. cp 21:40 Onset: The symptoms/episode began/occurred continues from visit 2 days ago after being cp seen and diagnosed with miscarriage. patient reports she was treated with Methergine. OTC ibuprofen and Tylenol not controlling pain. 21:40 Associated signs and symptoms: Pertinent negatives: constipation, diarrhea, fever, cp vomiting. 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 - Social history:: Smoking status: Patient denies any tobacco usage or history of. ROS: 21:45 Constitutional: Positive for chills, Negative for body aches, fever, poor PO intake. cp 21:45 Respiratory: Negative for cough, shortness of breath. cp 21:45 Abdomen/GI: Positive for abdominal pain, Negative for vomiting, diarrhea, constipation. 21:45 Eyes: Negative for injury, pain, redness, and discharge. cp 21:45 ENT: Negative for drainage from ear(s), ear pain, sore throat, difficulty swallowing, difficulty handling secretions. 21:45 Cardiovascular: Negative for chest pain, palpitations. 21:45 : Positive for vaginal bleeding. 21:45 Neuro: Negative for altered mental status, headache, syncope, weakness. cp 21:45 All other systems are negative. Exam: 21:50 Constitutional: The patient appears in no acute distress, alert, awake, non-toxic, well cp developed, well nourished. 21:50 Head/Face: Normocephalic, atraumatic. cp 21:50 Eyes: Periorbital structures: appear normal, Conjunctiva: normal, no exudate, no cp injection, Sclera: no appreciated abnormality, Lids and lashes: appear normal, bilaterally. 21:50 ENT: External ear(s): are unremarkable, Nose: is normal, Mouth: Lips: moist, Oral mucosa: moist, Posterior pharynx: Airway: no evidence of obstruction, patent. 21:50 Chest/axilla: Inspection: normal. 21:50 Cardiovascular: Rate: normal, Rhythm: regular. 21:50 Respiratory: the patient does not display signs of respiratory distress, Respirations: normal, no use of accessory muscles, no retractions, labored breathing, is not present, Breath sounds: are clear throughout, no decreased breath sounds, no stridor, no wheezing. 21:50 Abdomen/GI: Inspection: abdomen appears normal, Bowel sounds: active, all quadrants, cp Palpation: soft, in all quadrants, moderate abdominal tenderness, in the right lower quadrant and left lower quadrant, rebound tenderness, is not appreciated, involuntary guarding, is not appreciated. 21:50 Back: CVA tenderness, is absent. 04/04 00:28 : Pelvic Exam: Speculum exam: moderate bleeding, os that is closed, no tissue in cp cervix is seen, no tissue in vagina is seen, discharge, bloody, the nurse was present for the exam. Vital Signs: 04/03 21:26 BP 107 / 61; Pulse 67; Resp 18; Temp 98(TE); Pulse Ox 99% ; Weight 59.78 kg (R); Height kl 5 ft. 2 in. (157.48 cm); Pain 6/10; 23:25 BP 104 / 66; Pulse 70; Resp 16; Pulse Ox 99% on R/A; aa9 23:35 BP 98 / 55 Supine; Pulse 67; Resp 17 S; Pulse Ox 96% on R/A; aa9 23:40 BP 101 / 67 Sitting; Pulse 81; Resp 17 S; Pulse Ox 100% on R/A; aa9 23:45 BP 109 / 66 Standing; Pulse 74; Resp 17 S; Pulse Ox 100% on R/A; aa9 04/04 00:50 BP 102 / 58; Pulse 84; Resp 17; Pulse Ox 100% ; vc1 04/03 21:26 Body Mass Index 24.11 (59.78 kg, 157.48 cm) kl MDM: 04/03 22:00 Differential diagnosis: appendicitis, ovarian cyst, urinary tract infection, cp hemorrhage, sepsis, retained products. 22:30 Patient medically screened. 04/04 01:28 Data reviewed: vital signs, nurses notes, lab test result(s), radiologic studies, cp ultrasound. 01:28 Consideration of Admission/Observation Escalation of care including cp admission/observation considered. I considered the following discharge prescriptions or medication management in the emergency department Medications were administered in the Emergency Department. See MAR. External Records Reviewed: labs and note from previous ED visit. Counseling: I had a detailed discussion with the patient and/or guardian regarding: the historical points, exam findings, and any diagnostic results supporting the discharge/admit diagnosis, lab results, radiology results, the need for outpatient follow up, an OB/Gyne specialist, to return to the emergency department if symptoms worsen or persist or if there are any questions or concerns that arise at home. Response to treatment: the patient's symptoms have markedly improved after treatment, and as a result, I will discharge patient. 04/03 21:34 Order name: Basic Metabolic Panel; Complete Time: 00:12 04/04 00:52 Interpretation: Reviewed. 04/03 21:34 Order name: CBC with Diff; Complete Time: 23:57 04/03 23:57 Interpretation: Normal except: WBC 11.40; HGB 11.3; HCT 33.9. 04/03 21:34 Order name: Quantitative Hcg; Complete Time: 00:12 04/03 21:34 Order name: Type And Screen; Complete Time: 01:27 04/04 00:52 Interpretation: Reviewed. 04/04 00:01 Order name: Urine Microscopic Only; Complete Time: 01:27 04/04 01:27 Interpretation: Reviewed. 04/04 00:38 Order name: Urine Dipstick-Ancillary; Complete Time: 00:52 EDMS 04/04 00:52 Interpretation: Normal except: UKET Trace; UBLD 2+; UPROT Trace; UESTR Trace. 04/03 21:34 Order name: Orthostatics; Complete Time: 23:44 04/03 21:34 Order name: IV Saline Lock; Complete Time: 23:19 04/03 21:34 Order name: Labs collected and sent; Complete Time: 23:19 04/03 21:35 Order name: US Transvaginal Study (Probe) 04/04 00:43 Order name: Antibody Identification; Complete Time: 01:27 EDMS 04/03 21:34 Order name: NPO; Complete Time: 23:19 cp 04/03 21:34 Order name: Urine Dipstick-Ancillary (obtain specimen); Complete Time: 00:37 cp 04/03 21:35 Order name: Pelvic Exam Setup; Complete Time: 23:20 cp Administered Medications: 04/03 23:19 Drug: NS 0.9% 1000 ml Route: IV; Rate: 1 bolus; Site: right antecubital; aa9 04/04 00:19 Follow up: IV Status: Completed infusion; IV Intake: 100ml vc1 00:09 Drug: fentaNYL (PF) 25 mcg Route: IVP; Site: right antecubital; aa9 00:37 Follow up: Response: No adverse reaction aa9 01:49 Drug: Potassium Effervescent Tablet 50 mEq Route: PO; vc1 01:50 Follow up: Response: No adverse reaction; Medication administered at discharge. vc1 Disposition: 02:41 Co-signature as Attending Physician, Vikas Uribe MD. rn Disposition Summary: 04/04/22 01:29 Discharge Ordered Location: Home cp Problem: an ongoing problem cp Symptoms: have improved cp Condition: Stable cp Diagnosis - Complete or unspecified spontaneous without complication cp Followup: cp - With: Private Physician - When: 2 - 3 days - Reason: Recheck today's complaints Discharge Instructions: - Discharge Summary Sheet cp - Miscarriage cp - Managing Loss cp Forms: - Medication Reconciliation Form cp - Thank You Letter cp - Antibiotic Education cp - Prescription Opioid Use cp Prescriptions: - Tylenol-Codeine #3 300 mg-30 mg Oral - take 2 tablet by ORAL route every 8 hours; 14 tablet; Refills: 0, Product cp Selection Permitted Signatures: Dispatcher [employer] Melani Fritz RN RN kl Nieto, Roman, MD MD rn Page, Corey, PA PA cp Deyanira Mahmood RN RN vc1 Cyndi Diehl RN RN aa9
--- NOTE | 2022-04-04 01:30 | ER ---
Nurse's Notes [facility] Name: Gertrude Giron Age: 21 yrs Sex: Female : 2000 Arrival Date: 04/03/2022 Time: 21:10 Bed 2 Private MD: Diagnosis: Complete or unspecified spontaneous without complication Presentation: 04/03 21:26 Chief complaint: Patient states: heavy vag blleeding x 3 days after miscarriage using 1 kl pad per hour reports weakness and SOB. Coronavirus screen: Vaccine status: Patient reports being unvaccinated. Ebola Screen: Patient negative for fever greater than or equal to 101.5 degrees Fahrenheit, and additional compatible Ebola Virus Disease symptoms. Initial Sepsis Screen: Does the patient meet any 2 criteria? No. Patient's initial sepsis screen is negative. Does the patient have a suspected source of infection? No. Patient's initial sepsis screen is negative. Risk Assessment: Do you want to hurt yourself or someone else? Patient reports no desire to harm self or others. 21:26 Method Of Arrival: Ambulatory 21:26 Acuity: ZOEY 3 21:29 Note completed 5 pills of Methergine also c/o cramping. Triage Assessment: 21:29 General: Appears uncomfortable, well groomed, well developed, Behavior is calm, kl cooperative. Pain: Complains of pain in suprapubic area. EENT: No deficits noted. Neuro: No deficits noted. Cardiovascular: No deficits noted. Respiratory: No deficits noted. GI: Reports cramping. : Reports vaginal bleeding that is. 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 - Social history:: Smoking status: Patient denies any tobacco usage or history of. Screenin/11 00:43 Abuse screen: Denies threats or abuse. Denies injuries from another. Nutritional aa9 screening: No deficits noted. Tuberculosis screening: No symptoms or risk factors identified. 00:50 [facility] ED Fall Risk Assessment (Adult) History of falling in the last 3 months, vc1 including since admission No falls in past 3 months (0 pts) Confusion or Disorientation No (0 pts) Intoxicated or Sedated No (0 pts) Impaired Gait No (0 pts) Mobility Assist Device Used No (0 pt) Altered Elimination No (0 pt) Score/Fall Risk Level 0 - 2 = Low Risk Oriented to surroundings, Maintained a safe environment. Assessment: 00:43 General: Appears in no apparent distress. Behavior is calm, cooperative. Respiratory: aa9 Airway is patent Respiratory effort is even, unlabored. GI: No signs and/or symptoms were reported involving the gastrointestinal system. : Reports pain in suprapubic area lower quadrant(s) vaginal bleeding that is. 00:50 GI: Bowel sounds present X 4 quads. Abd is soft. vc1 Vital Signs: 04/03 21:26 BP 107 / 61; Pulse 67; Resp 18; Temp 98(TE); Pulse Ox 99% ; Weight 59.78 kg (R); Height kl 5 ft. 2 in. (157.48 cm); Pain 6/10; 23:25 BP 104 / 66; Pulse 70; Resp 16; Pulse Ox 99% on R/A; aa9 23:35 BP 98 / 55 Supine; Pulse 67; Resp 17 S; Pulse Ox 96% on R/A; aa9 23:40 BP 101 / 67 Sitting; Pulse 81; Resp 17 S; Pulse Ox 100% on R/A; aa9 23:45 BP 109 / 66 Standing; Pulse 74; Resp 17 S; Pulse Ox 100% on R/A; aa9 04/04 00:50 BP 102 / 58; Pulse 84; Resp 17; Pulse Ox 100% ; vc1 04/03 21:26 Body Mass Index 24.11 (59.78 kg, 157.48 cm) ED Course: 04/03 21:10 Patient arrived in ED. mr 21:10 Jacobo Seaman PA is PHCP. cp 21:10 Vikas Uribe MD is Attending Physician. cp 21:28 Triage completed. kl 23:03 US Transvaginal Study (Probe) In Process Unspecified. EDMS 23:20 Type And Screen Sent. aa9 23:20 Basic Metabolic Panel Sent. aa9 23:20 CBC with Diff Sent. aa9 23:20 Quantitative Hcg Sent. aa9 04/04 00:37 Urine Microscopic Only Sent. aa9 00:44 No provider procedures requiring assistance completed. aa9 00:44 Patient has correct armband on for positive identification. Placed in gown. Bed in low aa9 position. Side rails up X2. Adult w/ patient. 00:44 Arm band placed on right wrist. vc1 00:49 Deyanira Mahmood, RN is Primary Nurse. vc1 01:50 IV discontinued, intact, bleeding controlled, No redness/swelling at site. Pressure vc1 dressing applied. Administered Medications: 04/03 23:19 Drug: NS 0.9% 1000 ml Route: IV; Rate: 1 bolus; Site: right antecubital; aa9 04/04 00:19 Follow up: IV Status: Completed infusion; IV Intake: 100ml vc1 00:09 Drug: fentaNYL (PF) 25 mcg Route: IVP; Site: right antecubital; aa9 00:37 Follow up: Response: No adverse reaction aa9 01:49 Drug: Potassium Effervescent Tablet 50 mEq Route: PO; vc1 01:50 Follow up: Response: No adverse reaction; Medication administered at discharge. vc1 Medication: 00:44 VIS not applicable for this client. aa9 Intake: 00:19 IV: 100ml; Total: 100ml. vc1 Outcome: 01:29 Discharge ordered by MD. cp 01:50 Discharged to home ambulatory. vc1 01:50 Condition: improved 01:50 Discharge instructions given to patient, Instructed on discharge instructions, follow up and referral plans. medication usage, Demonstrated understanding of instructions, follow-up care, medications. 01:51 Patient left the ED. vc1 Signatures: Dispatcher [employer] EDMS Melani Hernandez RN RN kl Rivera, Mary mr Page, Corey, PA PA cp Calcote, Vanessa, RN RN vc1 Cyndi Diehl RN RN aa9 Corrections: (The following items were deleted from the chart) 04/03 23: 23:19 NS 0.9% 1000 ml IV at 1 bolus in left antecubital aa9 aa9
[2022-04-04] MEDS ORDERED: POTASSIUM 25 MEQ EFFERV TAB ONE (01:44)
[2022-04-04 01:56] VITALS: TEMP 98
[2022-04-04 02:00] VITALS: O2SAT 100
[2022-04-04 02:02] VITALS: BP 102/58
--- NOTE | 2022-04-05 15:56 | RAD REPORT ---
EXAM DESCRIPTION: US - Transvaginal Study Probe - 04/03/2022 11:01 pm CLINICAL HISTORY: 21 years Female recent miscarriage COMPARISON: 04/01/2022 TECHNIQUE: Real-time and rivero scale transabdominal sonographic imaging was performed to evaluate the pelvis. Transvaginal images were acquired to better evaluate the endometrium and adnexa. FINDINGS: The uterus measures 10.1 x 5.9 x 5.5 cm. The endometrial stripe again appears thickened an d heterogeneous in the lower uterine segment/cervix. It measures 1.8 cm in thickness where it previou sly measured 2.9 cm in thickness. No abnormal endometrial vascularity. The visualized adnexal mass or free fluid in the pelvis. Neither ovary visualized. IMPRESSION: Persistent thickening and heterogeneity of the endometrial stripe, which has somewhat de creased in thickness since the prior exam. No abnormal foci of vascularity within the endometrium. Re tained products of conception are not excluded by imaging alone. Correlation and beta hCG levels christiano mmended. Electronically signed by: Jennifer Stone MD 04/04/2022 12:03 AM SPORTS BOOK SERVER Due to temporary technical issues with the PACS/Fluency reporting system, reports are being signed by the in house radiologists without review as a courtesy to insure prompt reporting. The interpreting radiologist is fully responsible for the content of the report.
== END 2022-04-04 01:51 | disposition home or self-care (01) ==
LOC: ER 21:07
DX: O03.9 Complete or unspecified spontaneous abortion without complication (principal)
CPT/HCPCS: 96361; 85025; 80048; 36415; 86900; 86850; 86870; 86901; 84702; 76830; 96374; 99284; J3010; J7030; 81003; 81015

== ENCOUNTER → 2023-02-19 | Emergency (ER) | payer BC ==
--- OUTSIDE RECORDS SUMMARY | 2023-02-19 09:59 | XMS REPORT | Continuity of Care Document ---
Author Name Unknown Address [address] [facility] [address] [place] [address] [facility] thconnect Address [address] [facility] [place] [address] Care Team Providers Care Director Of Casework Name Role Phone Pcp, Patient Does Not Have A Primary Care Physic ulises [email or web address] Attending Clinician Unavaila JOE Smith Attending Clinician Joe Dennis MD Attending Clinician [phone] Doctor Unassigned, [place] Attending Clinician U navailable [email or web address] Admitting Clinician Lakeishaa lo Payers Payer Name Policy Type Policy Number Effective Date Expirati on Date Source [place] [id number] 2021 00:00:00 [place] OUT [place] [id number] 2022 00:00:00 Allergies, Adverse Reactions, Alerts Allergy Name Allergy Type Status Severity Reaction(s) Onset Date Inactive Date Treating Clinician Comments Source NO KNOWN ALLERGIE S Drug Class Active [facility] Social History Social Habit Start Date Stop Date Quantity Comments Source ASSERTION 2022-01-21 00:00:00 [facility] Exposure to SARS-CoV-2 (event) 2022-03-21 00:00:00 2022-03-31 13:48:00 Not sure [facility] Tobacco use and exposure 2022-03-31 00:00:00 2022-03-31 00:00:00 Smokeless tobacco non-user [facility] Alcohol intake 2022-03-31 00:00:00 2022-03-31 00:00:00 Ex-drinker (finding) [facility] Sex Assigned At 2000 00:00:00 2000 00:00:00 [facility] Smoking Status Start Date Stop Date Source Tobacco smoking consumption unknown [facility] Never smoked tobacco [facility] Medications Ordered Medication Name Filled Medication Name Start Date Stop Date Current Medication? Ordering Clinician Indication Dosage Frequency Signature (SIG) Comments Components Source promethazin e HCl (PHENERGAN ORAL) 03-31 14:55: 02 Yes [id number] Take by mouth. [facility] promethazin e HCl (PHENERGAN ORAL) 03-31 14:55: 02 Yes [id number] Take by mouth. [facility] ondansetron 4 mg disintegrat ing tablet 03-31 00:00: 00 Yes [id number] 4mg Take 1 tablet by mouth every 8 (eight) hours as needed for Nausea and Vomiting (N/V) or N/V unresponsi ve to Promethazi ne. [facility] Vital Signs Vital Name Observation Time Observation Value Comments S ource Systolic blood pressure 2022-03-31 20:47:00 106 mm[Hg] [facility] Diastolic blood pressure 2022-03-31 20:47:00 69 mm[Hg] [facility] Heart rate 2022-03-31 20:47:00 98 /min [facility] Body temperature 2022-03-31 20:47:00 36.67 [place] [facility] Respiratory rate 2022-03-31 20:47:00 16 /min [facility] Body height 2022-03-31 20:47:00 152.4 cm [facility] Body weight 2022-03-31 20:47:00 59.784 kg [facility] BMI 2022-03-31 20:47:00 25.74 kg/m2 [facility] Oxygen saturation in Arterial blood by Pulse oximetry 2022-03-31 20:47:00 97 /min [facility] Procedures Procedure Date / Time Performed Performing Clinicia n Source US OB TRANSVAGINAL 2022-03-31 21:39:00 AdJoe knight [facility] POCT TEST 2022-03-31 00:00:00 AdJoe knight [facility] DISCHARGE SUMMARY 2022-02-24 06:01:00 Doctor Rosita ssigned, [place] [facility] Encounters Start Date/Time End Date/Time Encounter Type Admission Type Attending [facility] Facility Care Department Encounter ID Source 2023-01-06 00:00:00 2023-01-06 00:00:00 Outpatient [email or web address] [email or web address]_S PRIV PRIV [id number] [facility] 2023-01-05 00:00:00 2023-01-05 00:00:00 Outpatient GC_[email or web address] diyala_S PRIV PRIV [id number] [facility] 2022-12-25 00:00:00 2022-12-25 00:00:00 Outpatient [email or web address] diyala_S PRIV PRIV [id number] [facility] 2022-12-25 00:00:00 2022-12-25 00:00:00 Outpatient [email or web address] diyala_S PRIV PRIV [id number] [facility] 2022-04-28 11:15:00 2022-04-28 11:15:00 Outpatient JOE ZAMORANO [facility] [id number] [facility] 2022-04-07 07:30:00 2022-04-07 07:30:00 Outpatient Mackenzie [facility] [id number] [facility] 2022-03-31 14:30:00 2022-03-31 15:50:57 Outpatient R JOE MARTÍNEZ [facility] [id number] [facility] 2022-03-31 14:30:00 2022-03-31 15:50:57 [facility] [id number] [facility] 2022-03-31 00:00:00 2022-03-31 00:00:00 Letter (Out) Adeugene, Joe Cunha [facility] [id number] [facility] 2022-02-24 00:00:00 2022-02-24 00:00:00 Orders Only Doctor Unassigned, [place] [facility] [id number] [id number] [facility] Results Test Description Test Time Test Comments Results Result Co mments Source [facility]
[2023-02-19 10:20] LABS: Specific Gravity > 1.030 (1.005-1.030)
[2023-02-19 10:24] LABS: Specific Gravity > 1.030 (1.005-1.030); Urine Bacteria None Seen /HPF (<20); Urine Bilirubin NEGATIVE (Negative); Urine Blood 3+ (Negative); Urine Clarity Turbid (Clear); Urine Color Yellow (Yellow); Urine Glucose NEGATIVE (Negative); Urine Mucus 2+ /HPF (None Seen); Urine Protein TRACE (Negative); Urine RBC >50 /HPF (None Seen); Urine Urobilinogen Normal (Normal); Urine pH 5.5 (5.0-7.0)
[2023-02-19 10:29] LABS: Absolute Lymphocytes (CBC) 1.7 K/uL (0.7-4.9); Hematocrit 31.7 % (36.0-45.0); Lymphocytes % 21.7 % (15.3-44.8); MCV 68.9 fL (80-100); MPV 7.7 fL (7.6-11.3); Platelets 397 thou/uL (152-406)
[2023-02-19 10:50] LABS: Albumin 3.5 g/dL (3.4-5.0); Bilirubin Total 0.2 mg/dL (0.2-1.0); Potassium 3.7 mEq/L (3.5-5.1); Protein, Total 7.3 g/dL (6.4-8.2)
--- NOTE | 2023-02-19 11:15 | RAD REPORT ---
EXAM DESCRIPTION: US - Transvaginal OB - 02/19/2023 11:07 am CLINICAL HISTORY: VAGINAL BLEEDING COMPARISON: Transvaginal OB dated 04/01/2022; Transvaginal Study Probe dated 04/03/2022 FINDINGS: Thickened and heterogenous endometrial canal measure up to 15 mm. No gestational sac or IUP seen. The maternal adnexa and ovaries are within normal limits. Normal Doppler blood flow was demonstrated to both ovaries. IMPRESSION: No IUP is visualized. Endometrium appears thickened and heterogenous measuring to 15 mm. Findings could indicate recent spontaneous . Recommend serial HCG follow-up as well as follow-up pelvic sonography in 7-10 days.
--- NOTE | 2023-02-19 11:41 | ER ---
Nurse's Notes [facility] Name: Gertrude Giron Age: 22 yrs Sex: Female : 2000 Arrival Date: 02/19/2023 Time: 09:57 Bed 6 Private MD: Diagnosis: Miscarriage;Complete or unspecified spontaneous without complication Presentation: 02/19 10:04 Chief complaint: Patient states: home UPT was positive a few days ago , I picked up iw something heavy at work , an now I'm having cramping and bleeding. Coronavirus screen: At this time, the client does not indicate any symptoms associated with coronavirus-19. Ebola Screen: Patient negative for fever greater than or equal to 101.5 degrees Fahrenheit, and additional compatible Ebola Virus Disease symptoms Patient denies exposure to infectious person. Patient denies travel to an Ebola-affected area in the 21 days before illness onset. No symptoms or risks identified at this time. Initial Sepsis Screen: Does the patient meet any 2 criteria? No. Patient's initial sepsis screen is negative. Does the patient have a suspected source of infection? No. Patient's initial sepsis screen is negative. Risk Assessment: Do you want to hurt yourself or someone else? Patient reports no desire to harm self or others. Onset of symptoms was February 19, 2023. 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 - Social history:: Smoking status: . Screenin:25 [facility] ED Fall Risk Assessment (Adult) History of falling in the last 3 months, ko1 including since admission No falls in past 3 months (0 pts) Confusion or Disorientation No (0 pts) Intoxicated or Sedated No (0 pts) Impaired Gait No (0 pts) Mobility Assist Device Used No (0 pt) Altered Elimination No (0 pt) Score/Fall Risk Level 0 - 2 = Low Risk Oriented to surroundings, Maintained a safe environment, Educated pt \T\ family on fall prevention, incl call for assistance when getting out of bed, Assessed \T\ reinforced patient's understanding of fall precautions, Provided non-skid footwear, Hourly rounding (assess needs \T\ fall precautionary measures) done, Used ambulatory aids as needed (educated on \T\ assisted with), Used gait belt as appropriate. Abuse screen: Denies threats or abuse. Denies injuries from another. Nutritional screening: No deficits noted. Tuberculosis screening: No symptoms or risk factors identified. Assessment: 10:25 General: Appears in no apparent distress. comfortable, Behavior is calm, cooperative, ko1 appropriate for age. Pain: Complains of pain in right lower quadrant and left lower quadrant. Neuro: No deficits noted. Cardiovascular: No deficits noted. Respiratory: No deficits noted. GI: No deficits noted. : Urine is clear, Reports vaginal bleeding that is bright red, light flow. EENT: No deficits noted. Derm: No deficits noted. Musculoskeletal: No deficits noted. 13:00 Reassessment: DC ON HOLD FOR RHOGAM FROM BLOOD BANK. bp Vital Signs: 10:04 BP 123 / 66; Pulse 99; Resp 16; Pulse Ox 100% on R/A; Weight 53.52 kg; Height 5 ft. 2 iw in. ; 10:25 BP 105 / 61; Pulse 82; Resp 15; Pulse Ox 99% ; ko1 12:14 BP 101 / 56; Pulse 79; Resp 14; Pulse Ox 99% ; ko1 10:04 Body Mass Index 21.58 (53.52 kg, 157.48 cm) iw ED Course: 10:00 Patient arrived in ED. ts1 10:01 Yared Bravo MD is Attending Physician. ec2 10:05 Triage completed. iw 10:05 Arm band placed on. iw 10:24 Inserted saline lock: 22 gauge in left antecubital area, using aseptic technique. Blood ko1 collected. 10:25 Lyubov Bird RN is Primary Nurse. ko1 10:25 Patient has correct armband on for positive identification. Bed in low position. Call ko1 light in reach. Side rails up X 1. Pulse ox on. NIBP on. Door closed. Noise minimized. Lights dimmed. Warm blanket given. 10:25 Abo/rh Typing Sent. ko1 10:25 CMP Sent. ko1 10:25 CBC with Diff Sent. ko1 10:25 HCG-Quantitative Sent. ko1 11:09 Transvaginal OB US In Process Unspecified. EDMS 12:14 Provided Education on: NA. ko1 12:14 No provider procedures requiring assistance completed. ko1 14:26 IV discontinued, intact, bleeding controlled, No redness/swelling at site. Pressure ko1 dressing applied. Administered Medications: 14:29 Drug: Rho D Immune Globulin IM 300 mcg IM once Route: IM; Site: right deltoid; bp Medication: 10:25 VIS not applicable for this client. ko1 Outcome: 11:40 Discharge ordered by . ec2 14:26 Condition: stable ko1 14:30 Discharged to home ambulatory, with family, bp 14:30 Discharge instructions given to patient, Instructed on discharge instructions, follow up and referral plans. Demonstrated understanding of instructions, follow-up care, 14:30 Patient left the ED. bp Signatures: Dispatcher [employer] Alis Morrison RN RN iw Dillon Aguilar RN RN bp Oliver, Kathy, RN RN ko1 Mignon Simpson PAS PAS ts1 Yared Bravo MD MD ec2
--- NOTE | 2023-02-19 11:41 | EDPHYS ---
Physician Documentation [facility] Name: Gertrude Giron Age: 22 yrs Sex: Female : 2000 Arrival Date: 02/19/2023 Time: 09:57 Bed 6 Private MD: ED Physician Yared Bravo HPI: 02/19 10:08 This 22 yrs old Female presents to ER via Ambulatory with complaints of ec2 Vaginal Bleeding, Abdominal Cramping. 10:08 Patient arrives today for evaluation of vaginal bleeding. Patient reports that she last ec2 had her period approximately weeks ago, states that she tested positive approximately 1 week ago. Patient reports she is having lower abdominal cramping as well as vaginal bleeding and spotting. Patient reports no significant medical problems. Reports 1 previous , states that previous ended in miscarriage.. 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 - Social history:: Smoking status: . ROS: 10:08 Constitutional: as per hpi ec2 Exam: 10:08 Constitutional: GEN: NAD Head: atraumatic Eyes: EOMI Ears: External ears are ec2 normal. CV: regular rate LUNGS: no respiratory distress ABD: non-distended SKIN: no evidence of rashes MSK: no evidence of trauma NEURO: moves all extremities equally Vital Signs: 10:04 BP 123 / 66; Pulse 99; Resp 16; Pulse Ox 100% on R/A; Weight 53.52 kg; Height 5 ft. 2 iw in. ; 10:25 BP 105 / 61; Pulse 82; Resp 15; Pulse Ox 99% ; ko1 12:14 BP 101 / 56; Pulse 79; Resp 14; Pulse Ox 99% ; ko1 10:04 Body Mass Index 21.58 (53.52 kg, 157.48 cm) iw MDM: 10:08 Patient medically screened. ec2 10:08 Data reviewed: vital signs. ED course: Patient arrives today due to concern for vaginal ec2 bleeding in the setting of . Examination remarkable for well-appearing nontoxic individual is otherwise in no acute distress. Will obtain lab work, ultrasound. Currently considering process such as bleeding in , miscarriage.. 11:27 ED course: CBC is reassuring, slight anemia noted. Metabolic profile is reassuring. ec2 Urine positive. Urine with no bacteria noted. hCG at 27,000. Transvaginal ultrasound shows no visualized IUP, given the reports of significant bleeding and clotting, I suspect miscarriage, I will have her follow-up for repeat hCG in 48 hours. Patient is otherwise nontoxic-appearing, with no acute distress, not significantly tender in the abdomen, I have a low index suspicion for an ectopic . Of note patient is O-, will give RhoGAM.. 02/19 10:09 Order name: Abo/rh Typing ec2 02/19 13:52 Order name: Rh Typing [facility] 02/19 13:52 Order name: Antibody Screen EDDE 02/19 13:53 Order name: Fetalscreen [facility] 02/19 13:53 Order name: Cord Rh type [facility] 02/19 10:01 Order name: CBC with Diff; Complete Time: 12:16 ec2 02/19 10:01 Order name: CMP; Complete Time: 11:26 ec2 02/19 10:01 Order name: Test, Urine; Complete Time: 11:26 ec2 02/19 10:01 Order name: UAM; Complete Time: 11:26 ec2 02/19 10:08 Order name: HCG-Quantitative; Complete Time: 11:26 ec2 02/19 12:13 Order name: CBC Smear Scan; Complete Time: 12:16 EDMS 02/19 10:08 Order name: Transvaginal OB US; Complete Time: 11:26 ec2 Administered Medications: 14:29 Drug: Rho D Immune Globulin IM 300 mcg IM once Route: IM; Site: right deltoid; bp Disposition Summary: 02/19/23 11:40 Discharge Ordered Condition: Stable ec2 Diagnosis - Miscarriage ec2 - Complete or unspecified spontaneous without complication ec2 Followup: ec2 - With: Emergency Department - When: - Reason: Recheck today's complaints Discharge Instructions: - Discharge Summary Sheet ec2 - Miscarriage, [id number] ec2 Forms: - Medication Reconciliation Form ec2 - Thank You Letter ec2 - Antibiotic Education ec2 - Prescription Opioid Use ec2 - Patient Portal Instructions ec2 - Leadership Thank You Letter ec2 Signatures: Dispatcher [employer] Alis Morrison RN RN iw Peltier, Brian, RN RN bp Corral, Edwin, MD MD ec2 Corrections: (The following items were deleted from the chart) 11:40 11:27 ED course: CBC is reassuring, slight anemia noted. Metabolic profile is ec2 reassuring. Urine positive. Urine with no bacteria noted. hCG at 27,000. Transvaginal ultrasound shows no visualized IUP, given the reports of significant bleeding and clotting, I suspect miscarriage, I will have her follow-up for repeat hCG in 48 hours. Patient is otherwise nontoxic-appearing, with no acute distress, not significantly tender in the abdomen, I have a low index suspicion for an ectopic .. ec2
[2023-02-19 12:12] LABS: Blood Morphology Comment NOTED (NOT SEEN); Platelet Estimate ADEQ; White Blood Cell Scan OK (OK)
[2023-02-19 14:58] VITALS: O2SAT 99
[2023-02-19 14:59] VITALS: BP 101/56
== END ==
LOC: ER 09:57
DX: O03.9 Complete or unspecified spontaneous abortion without complication (principal); Z88.0 Allergy status to penicillin
CPT/HCPCS: 85025; 81001; 36415; 86900; 86850; 81025; 86901 ×2; 84702; 80053; 76817; 96372; 99284; J2790